=== PATIENT | male | born 1960 | race Caucasian/White ===

== ENCOUNTER 2018-04-24 11:14 | Inpatient (IN) | payer MEDICARE ==
[~2018-04-24] VITALS: Ht 170.2 cm; Wt 61.9 kg
[2018-04-24 16:10] VITALS: BP 109/71; PULSE 86; TEMP 97.5
[2018-04-24] MEDS ORDERED: LIPITOR 80MG80 MG PEG (16:42)
[2018-04-24] MEDS ORDERED: VITAMIN B100 CO1 TAB PEG (16:44)
[2018-04-24] MEDS ORDERED: VITAMINC500CH PEG (16:45)
[2018-04-24] MEDS ORDERED: COREG 3.123.125 MG/T PEG (16:47)
[2018-04-24] MEDS ORDERED: COREG 6.256.25 MG/TA PEG (16:48)
[2018-04-24] MEDS ORDERED: COLACE LIQUI10 MG/ML PEG (16:50)
[2018-04-24] MEDS ORDERED: [UNRECOGNIZED DRUG - OTHER] IM (16:52)
[2018-04-24] MEDS ORDERED: GLUTOSE 1515 GM PO (16:53)
[2018-04-24] MEDS ORDERED: GOOD SENSE ANTI-IT1% TP (16:55)
[2018-04-24] MEDS ORDERED: PROBIOTIC ACID1 EAC3 PEG (16:57)
[2018-04-24] MEDS ORDERED: KEPPRA SUSP100 MG/ML PEG (16:58)
[2018-04-24] MEDS ORDERED: PRINIVIL10 MG PEG (16:59)
[2018-04-24] MEDS ORDERED: NITROSTAT0.4 MG/TAB SL (17:00)
[2018-04-24] MEDS ORDERED: NATURE'S BLEND100 M2 PEG (17:01)
[2018-04-24] MEDS ORDERED: ULTRAM 50MG TAB50 MG PEG (17:04)
[2018-04-24] MEDS ORDERED: FOLIC ACID 11 MG/TA1 PO (17:10)
[2018-04-24 18:00] VITALS: BP 122/84; PULSE 86; TEMP 97.5
[2018-04-25 04:57] VITALS: BP 104/70; PULSE 87; TEMP 97.9
[2018-04-25 06:30] LABS: BASO # 0.1 (0.0-0.2); BASO % 0.8 % (0.0-2.0); EOS # 0.1 (0.0-0.7); EOS % 1.3 % (0-4.0); GRAN # 3.5 (1.4-6.5); GRAN % 58.4 % (42.2-75.2); HEMOGLOBIN 11.9 g/dl (13.5-18.0); LYMPH # 1.8 (1.2-3.4); LYMPH % 29.3 % (20.0-51.0); MEAN CELL VOLUME 96 fl (80.0-100.0); MEAN CORPUSCULAR HEMOGLOBIN 32 pg (27.0-31.0); MEAN CORPUSCULAR HGB CONC 33 g/dl (33.0-37.0); MONO # 0.6 (0.1-0.6); MONO % 9.7 % (1.7-9.3); PLATELET COUNT 252 K/mm3 (130-400); RED BLOOD COUNT 3.74 M/mm3 (4.20-5.60); REDCELL DISTRIBUTION WIDTH-CV 13.7 % (11.5-14.5)
[2018-04-25 06:37] LABS: HEMATOCRIT 35.8 % (42.0-52.0)
[2018-04-25 06:38] LABS: ALBUMIN 3.7 gm/dL (3.5-5.0); BILIRUBIN,TOTAL 0.5 mg/dL (0.0-1.0); CALCIUM 9.6 mg/dL (8.4-10.2); CREATININE, serum 0.85 mg/dL (0.66-1.25); MAGNESIUM 1.7 mg/dL (1.6-2.3); PHOSPHOROUS 5.7 mg/dL (2.5-4.5); POTASSIUM 4.8 mmol/L (3.4-5.0); TOTAL PROTEIN 7.6 gm/dL (6.4-8.2)
[2018-04-25 06:45] LABS: PRE ALBUMIN 30.2 mg/dL (17.6-36.0)
[2018-04-25 12:31] VITALS: BP 125/75; PULSE 76; TEMP 97.6
[2018-04-25 17:51] VITALS: BP 117/71; PULSE 75; TEMP 98.4
[2018-04-26 04:52] VITALS: BP 115/74; PULSE 79; TEMP 98.1
[2018-04-26 16:52] VITALS: BP 106/78; PULSE 91; TEMP 98.2
[2018-04-27 06:00] VITALS: BP 109/81; PULSE 92; TEMP 97.5
[2018-04-27 16:48] VITALS: BP 108/75; PULSE 90; TEMP 98.3
[2018-04-28 06:00] VITALS: BP 116/78; PULSE 86; TEMP 97.8
[2018-04-28 07:48] LABS: ALBUMIN 3.9 gm/dL (3.5-5.0); BILIRUBIN,TOTAL 0.5 mg/dL (0.0-1.0); CALCIUM 9.5 mg/dL (8.4-10.2); CREATININE, serum 0.82 mg/dL (0.66-1.25); MAGNESIUM 1.7 mg/dL (1.6-2.3); PHOSPHOROUS 5.4 mg/dL (2.5-4.5); POTASSIUM 4.8 mmol/L (3.4-5.0)
[2018-04-28 15:16] VITALS: BP 119/70; PULSE 78; TEMP 97.8
[2018-04-29 04:56] VITALS: BP 136/74; PULSE 78; TEMP 98.2
[2018-04-29 10:56] VITALS: BP 113/97; PULSE 106; TEMP 97.4
[2018-04-29 16:30] VITALS: BP 109/76; PULSE 82; TEMP 97.9
[2018-04-30 04:17] VITALS: BP 107/70; PULSE 87; TEMP 97.8
[2018-04-30 16:42] VITALS: BP 129/75; PULSE 92; TEMP 98.1
[2018-05-01 05:21] VITALS: BP 105/71; PULSE 92; TEMP 98.2
[2018-05-01 17:54] VITALS: BP 114/74; PULSE 86; TEMP 97.9
[2018-05-02 05:59] VITALS: BP 124/75; PULSE 82; TEMP 98.2
[2018-05-02 16:38] VITALS: BP 102/67; PULSE 80; TEMP 97.5
[2018-05-03 05:34] VITALS: BP 111/65; PULSE 56; TEMP 98.6
[2018-05-03 16:21] VITALS: BP 106/77; PULSE 77; TEMP 98.1
[2018-05-04 04:35] VITALS: BP 104/68; PULSE 82; TEMP 97.9
[2018-05-04 15:35] VITALS: BP 120/82; PULSE 76; TEMP 97.7
[2018-05-05 04:26] VITALS: BP 101/65; PULSE 85; TEMP 98.2
[2018-05-05 07:23] LABS: ALBUMIN 3.5 gm/dL (3.5-5.0); BILIRUBIN,TOTAL 0.4 mg/dL (0.0-1.0); CALCIUM 9.4 mg/dL (8.4-10.2); CREATININE, serum 0.85 mg/dL (0.66-1.25); MAGNESIUM 1.6 mg/dL (1.6-2.3); PHOSPHOROUS 5.2 mg/dL (2.5-4.5); POTASSIUM 4.5 mmol/L (3.4-5.0); TOTAL PROTEIN 7.2 gm/dL (6.4-8.2)
[2018-05-05 07:46] LABS: PRE ALBUMIN 24.8 mg/dL (17.6-36.0)
[2018-05-05 16:31] VITALS: BP 120/75; PULSE 93; TEMP 97.9
[2018-05-06 06:00] VITALS: BP 110/77; PULSE 80; TEMP 97.5
[2018-05-06 17:10] VITALS: BP 123/79; PULSE 81; TEMP 97.9
[2018-05-07 05:41] VITALS: BP 114/73; PULSE 78; TEMP 97.9
[2018-05-07 16:15] VITALS: BP 128/82; PULSE 71; TEMP 97.6
[2018-05-08 04:26] VITALS: BP 105/76; PULSE 78; TEMP 97.8
[2018-05-08 15:31] VITALS: BP 133/83; PULSE 75; TEMP 98.4
[2018-05-09 05:06] VITALS: BP 118/76; PULSE 74; TEMP 98.4
[2018-05-09 16:49] VITALS: BP 127/72; PULSE 76; TEMP 98.6
[2018-05-10 06:00] VITALS: BP 121/71; PULSE 68; TEMP 97.6
[2018-05-10 17:27] VITALS: BP 116/71; PULSE 65; TEMP 97.9
[2018-05-11 05:33] VITALS: BP 120/87; PULSE 67; TEMP 97.8
[2018-05-11 18:04] VITALS: BP 116/54; PULSE 61; TEMP 98.4
[2018-05-12 06:34] VITALS: BP 109/71; PULSE 69; TEMP 98.2
[2018-05-12 07:13] LABS: ALBUMIN 3.6 gm/dL (3.5-5.0); BILIRUBIN,TOTAL 0.3 mg/dL (0.0-1.0); CALCIUM 9.5 mg/dL (8.4-10.2); CREATININE, serum 0.82 mg/dL (0.66-1.25); MAGNESIUM 1.8 mg/dL (1.6-2.3); PHOSPHOROUS 4.8 mg/dL (2.5-4.5); POTASSIUM 4.3 mmol/L (3.4-5.0); TOTAL PROTEIN 6.7 gm/dL (6.4-8.2)
[2018-05-12 07:20] LABS: PRE ALBUMIN 22.5 mg/dL (17.6-36.0)
[2018-05-12 14:59] VITALS: BP 119/76; PULSE 69; PULSE 696; TEMP 97.8
[2018-05-13 06:00] VITALS: BP 117/73; PULSE 73; TEMP 97.8
[2018-05-13 16:18] VITALS: BP 130/88; PULSE 80; TEMP 97.5
[2018-05-14 05:24] VITALS: BP 104/65; PULSE 73; TEMP 97.9
[2018-05-14 16:59] VITALS: BP 104/64; PULSE 66; TEMP 98.2
[2018-05-15 06:00] VITALS: BP 125/82; PULSE 78; TEMP 98.3
[2018-05-15 18:00] VITALS: BP 105/62; PULSE 73; TEMP 98.5
[2018-05-16 05:38] VITALS: BP 103/62; PULSE 66; TEMP 97.7
[2018-05-16 15:33] VITALS: BP 123/76; PULSE 73; TEMP 98.2
[2018-05-17 04:49] VITALS: BP 110/61; PULSE 66; TEMP 98.1
[2018-05-17] MEDS ORDERED: TYLENOL ELIX32 MG/M2 PO (08:36)
[2018-05-17] MEDS ORDERED: MAG-OX 400400 MG/TAB PO (08:37)
[2018-05-17] MEDS ORDERED: MULTI-VITAMIN W1 TA1 PO (08:38)
[2018-05-17] MEDS ORDERED: ZESTRIL 5MG5 MG PO (08:39)
[2018-05-17] MEDS ORDERED: ZOLOFT 50MG50 MG PO (08:39)
== END 2018-05-17 12:00 | disposition home health service (06) | DRG 57 ==
PROVIDERS: Internal Medicine
PROC: 0DP6XUZ Removal of Feeding Device from Stomach, External Approach (ICD-10-PCS; principal; 2018-05-14)
DX: I69.251 Hemiplegia and hemiparesis following other nontraumatic intracranial hemorrhage affecting right dominant side (principal); I50.22 Chronic systolic (congestive) heart failure; E46 Unspecified protein-calorie malnutrition; I25.2 Old myocardial infarction; I69.291 Dysphagia following other nontraumatic intracranial hemorrhage; R13.10 Dysphagia, unspecified; I25.5 Ischemic cardiomyopathy; I11.0 Hypertensive heart disease with heart failure; E11.9 Type 2 diabetes mellitus without complications; F17.210 Nicotine dependence, cigarettes, uncomplicated; I25.10 Atherosclerotic heart disease of native coronary artery without angina pectoris; Z95.5 Presence of coronary angioplasty implant and graft; F43.21 Adjustment disorder with depressed mood
CPT/HCPCS: 99222-AI; 99232-AI; 99239